=== PATIENT | male | born 1950 | race Caucasian/White ===

== ENCOUNTER 2017-08-25 16:21 | Emergency (ER) | payer MEDICARE, MEDICAID ==
[~2017-08-25] VITALS: Ht 177.8 cm; Wt 72.0 kg
[2017-08-25] MEDS ORDERED: TETANUS, DIPHTHERIA, PERTUSSIS VAC/PF 0.5ML (>7YR OLD) IM ONE (17:30)
[2017-08-25 18:00] LABS: BASOPHILS % 1.2 % (0.0-2.0); EOSINOPHILS % 6.9 % (0.0-5.0); HEMATOCRIT. 42.1 % (42.0-52.0); HEMOGLOBIN. 14.2 g/dL (14.0-18.0); LYMPHOCYTES % 29.3 % (20.0-50.0); MEAN CORPUSCULAR VOLUME 85.8 fL (80.0-94.0); MEAN PLATELET VOLUME 9.2 fl (7.4-10.4); MONOCYTES % 7.1 % (2.0-8.0); NEUTROPHILS % 55.5 % (40.0-76.0); PLATELET 196 x1000/uL (130-400); RED CELL DISTRIBUTION WIDTH 14.1 % (11.6-14.6)
[2017-08-25 18:07] LABS: CHLORIDE 112 mEq/L (98-107)
[2017-08-25 18:10] LABS: CARBON DIOXIDE 22 mEq/L (21-32)
[2017-08-25 18:14] LABS: INR 1.1; PARTIAL THROMBOPLASTIN TIME 25.7 sec (23.4-31.0); PROTHROMBIN TIME 10.9 sec (9.4-11.6)
[2017-08-25 20:19] VITALS: BP 113/74
== END 2017-08-25 21:00 | disposition home or self-care (01) ==
LOC: ER 16:29
DX: S02.2XXA Fracture of nasal bones, initial encounter for closed fracture (principal); S02.82XA Fracture of other specified skull and facial bones, left side, initial encounter for closed fracture; S02.40DA Maxillary fracture, left side, initial encounter for closed fracture; S01.01XA Laceration without foreign body of scalp, initial encounter; W19.XXXA Unspecified fall, initial encounter; Y93.89 Activity, other specified; Y92.89 Other specified places as the place of occurrence of the external cause; Y99.8 Other external cause status
CPT/HCPCS: 12001; 21320; 36415; 70450; 70486; 71010; 72125; 72170; 80053; 83690; 85025; 85610; 85730; 90471; 99285

== ENCOUNTER 2017-10-17 11:43 | Emergency (ER) | payer MEDICARE, MEDICAID ==
[~2017-10-17] VITALS: Ht 170.2 cm; Wt 70.0 kg
[2017-10-17 11:46] VITALS: BP 137/83
== END 2017-10-17 13:23 | disposition home or self-care (01) ==
LOC: ER 11:43
DX: Z48.02 Encounter for removal of sutures (principal)
CPT/HCPCS: 99281